=== PATIENT | female | born 1980 | race Caucasian/White ===

== ENCOUNTER 2021-04-16 10:53 | Emergency (ER) | payer MEDICAID ==
[~2021-04-16] VITALS: Ht 167.6 cm; Wt 84.0 kg
[2021-04-16 11:12] VITALS: BP 172/93
== END 2021-04-16 11:59 | disposition left against medical advice (07) ==
LOC: ER 10:53
DX: Z53.21 Procedure and treatment not carried out due to patient leaving prior to being seen by health care provider (principal)